=== PATIENT | male | born 2000 | race African-American/Black ===

== ENCOUNTER 2021-10-14 22:14 | Emergency (ER) | payer OTHER, BC, SELFPAY ==
--- NOTE | ~2021-10-14 | XR_ITS ---
EXAMINATION: XR chest 2V DATE: 10/14/2021 23:28 INDICATION: Neck and back pain TECHNIQUE: PA and lateral views of the chest are obtained. COMPARISON: None available FINDINGS: The lungs are free of acute opacities. There is no pleural effusion or pneumothorax. The ca rdiomediastinal silhouette is normal. The visualized bones and soft tissues are unremarkable. IMPRESSION: 1. No acute cardiopulmonary abnormality. Reviewed, dictated and finalized at location F. R LAYER
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
[2021-10-14 22:27] VITALS: BP 173/75; PULSE 73; RESP 18; TEMP 36.7; O2SAT 100
[2021-10-14 22:52] VITALS: BP 170/80; PULSE 70; RESP 18; O2SAT 100
[2021-10-14] MEDS: IBUPROFEN 600 MG TABLET PO (23:11)
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
== END 2021-10-15 00:31 | disposition home or self-care (01) ==
PROVIDERS: Emergency Provider Emergency Medicine
DX: S39.92XA Unspecified injury of lower back, initial encounter (principal); S16.1XXA Strain of muscle, fascia and tendon at neck level, initial encounter; V43.52XA Car driver injured in collision with other type car in traffic accident, initial encounter
CPT/HCPCS: 70450; 71046; 72110; 72125; 99284; A9270